=== PATIENT | female | born 1950 | race Caucasian/White ===

== ENCOUNTER → 2017-01-25 | Outpatient (CLI) | payer MEDICARE, OTHER ==
[~2017-01-25] MED LIST: ASPIRIN81 MG PO; BYSTOLIC2.5 MG PO; CULTURELLE1 CAP PO; DILAUDID2 MG PO; KLOR-CON 1010 MEQ PO; LACTINEX (FLORA1 TAB PO; LEXAPRO10 MG PO; PROTONIX40 MG PO; REFRESH PLUS1 EACH OPHTH; SYNTHROID150 MCG PO; TOPAMAX100 M1 PO; TOPAMAX50 MG PO; TRAMADOL HCL50 MG PO; TYLENOL EXTRA500 MG PO; XANAX0.25 M1 PO; XARELTO10 MG PO
== END | disposition disaster alternative care site (69) ==
LOC: GBCOE 13:17
DX: Z12.31 Encounter for screening mammogram for malignant neoplasm of breast (principal)
CPT/HCPCS: G0202